=== PATIENT | female | born 1980 | race Caucasian/White ===

== ENCOUNTER 2020-10-28 14:34 | Emergency (ER) | payer OTHER, SELFPAY ==
--- NOTE | 2020-10-28 14:51 | DI.RAD.S_ITS ---
PROCEDURE: XR ANKLE LT MIN 3V INDICATIONS: fall TECHNIQUE: 3 views of the ankle were acquired. COMPARISON: None. FINDINGS: Bones: No fractures or dislocations. Ankle mortise is normally aligned. No suspicious bony lesions. Posterior and plantar calcaneal spurs. Soft tissues: No tibiotalar joint effusion. Achilles tendon appears normal. IMPRESSION: Calcaneal spurs. Otherwise unremarkable left ankle radiographs Approved by: Shemar Connor M.D. on 10/28/2020 at 14:32
--- NOTE | 2020-10-28 14:51 | DI.RAD.S_ITS ---
PROCEDURE: XR FOOT LT MIN 3V INDICATIONS: fall TECHNIQUE: 3 views of the foot were acquired. COMPARISON: None. FINDINGS: Bones: No fractures or dislocations. No suspicious bony lesions. Small calcaneal spur Soft tissues: No tibiotalar joint effusion. Achilles tendon appears normal. IMPRESSION: Small posterior and plantar calcaneal spurs. No fracture or foreign body Approved by: Shemar Connor M.D. on 10/28/2020 at 14:34
[2020-10-28 14:52] VITALS: BP 175/90; PULSE 100; RESP 18; TEMP 36.6; O2SAT 98; BMI 60.2
--- NOTE | 2020-10-28 15:19 | PC.NURSE ---
in addition to L ankle injury, pt complaints of a tingling sensation from head to foot along the L side of her body began apoxx 3 days ago.
[2020-10-28] MEDS: IBUPROFEN 400 MG TABLET 800 MG PO (16:20)
--- NOTE | 2020-10-28 17:15 | PC.NURSE ---
Pt declined DC VS
--- NOTE | 2020-10-30 17:15 | ED_ITS ---
HPI - Extremity Injury (Lower) <Petra Armstrong PA-C - Last Filed: 10/30/20 17:32> General Chief Complaint: Extremity Injury, Lower Stated Complaint: poss broken ankle Time Seen by Provider: 10/28/20 14:51 Source: patient and family Mode of arrival: Family Vehicle Limitations: no limitations History of Present Illness HPI Narrative: 40-year-old female with no significant past medical history presents to the ED status post a left ankle injury just prior to arrival. Patient reports that she rolled her ankle when stepping off a sidewalk, has rolled the same ankle before, was unable to bear weight or walk right after due to the pain. patient denies numbness, tingling, weakness. Related Data Allergies Allergy/AdvReac Type Severity Reaction Status Date / Time No Known Drug Allergies Allergy Verified 10/28/20 14:50 Review of Systems <Petra Armstrong PA-C - Last Filed: 10/30/20 17:32> Constitutional Constitutional: Denies chills, Denies fever(s), Denies frequent falls, Denies lethargy and Denies weakness ENT Ears, Nose, Mouth, and Throat: Denies dizziness Cardiovascular Cardiovascular: Denies chest pain, Denies irregular heart rhythm, Denies lightheadedness, Denies palpitations, Denies dyspnea, Denies dyspnea on exertion and Denies orthopnea Respiratory Respiratory: Denies cough, Denies dyspnea, Denies dyspnea on exertion and Denies wheezing Gastrointestinal Gastrointestinal: Denies abdominal pain, Denies change in bowel habits, Denies diarrhea, Denies nausea and Denies vomiting Musculoskeletal Musculoskeletal: Denies numbness Comments: Left ankle swelling, pain, inability to bear weight Integumentary/Breasts Skin/Breast: Denies pruritus, Denies erythema, Denies rash and Denies wounds Neurologic Neurologic: Denies behavioral changes, Denies confusion, Denies dizziness, Denies frequent falls, Denies numbness and Denies weakness Psychiatric Psychiatric: Denies behavioral changes and Denies confusion Endocrine Endocrine: Denies palpitations Hematologic/Lymphatic Hematologic/Lymphatic: Denies easy bruising Allergic/Immunologic Allergic/Immunologic: Denies wheezing Patient History <Petra Armstrong PA-C - Last Filed: 10/30/20 17:32> Social History Smoking Status: Never smoker Smoking Status: Never smoker alcohol intake frequency: holidays/special occasions only Substance Use Type: marijuana Exam <Petra Armstrong PA-C - Last Filed: 10/30/20 17:32> Initial Vital Signs Initial Vital Signs: Vital Signs Temperature 97.9 F 10/28/20 14:52 Pulse Rate 100 H 10/28/20 14:52 Respiratory Rate 18 10/28/20 14:52 Blood Pressure 175/90 H 10/28/20 14:52 Pulse Oximetry 98 10/28/20 14:52 Const General: cooperative Resp Effort & Inspection: normal respiratory effort, able to speak in complete sentences, no respiratory distress and no use of accessory muscles Auscultation: clear to auscultation bilaterally, no rales, no rhonchi and no wheezes Cardio Rate: regular rate Rhythm: regular rhythm Heart Sounds: no click, no gallops, no murmurs and no rubs Pulses: normal peripheral pulses Back/Spine/Pelvis Back: No CVA tenderness Cervical Spine: cervical ROM normal and No pain with cervical ROM Thoracic/Lumbar Spine: thoracic and lumbar spine normal to inspection Skin General: no rashes or lesions noted, No jaundice and No petechiae Neuro General: patient alert, patient oriented x3, gait normal and no focal motor deficits Speech: speech normal Extrem General: capillary refill normal, no clubbing, cyanosis or edema and no calf tenderness Left lower extremity: normal capillary refill Other: left ankle with moderate swelling, no bruising. Patient unable to bear weight or walk. Patient neurovascularly intact. Cap refill less than 2 seconds. <Deana Bean DO - Last Filed: 11/01/20 07:41> Initial Vital Signs Initial Vital Signs: Vital Signs Temperature 97.9 F 10/28/20 14:52 Pulse Rate 100 H 10/28/20 14:52 Respiratory Rate 18 10/28/20 14:52 Blood Pressure 175/90 H 10/28/20 14:52 Pulse Oximetry 98 10/28/20 14:52 Course <FOX Rodriguez Last Filed: 10/30/20 17:32> Course Course Narrative: X-rays negative for fractures, dislocations. under sprain treated with ibuprofen, boot and non-weightbearing. Follow-up with PCP. Orders Ordered: Discontinued Medications Ibuprofen (Ibuprofen 400 Mg Tablet) 800 mg PO NOW ONE Stop: 10/28/20 16:09 Last Admin: 10/28/20 16:20 Dose: 800 mg Documented by: JOSE MANUEL <Deana Bean DO - Last Filed: 11/01/20 07:41> Orders Ordered: Discontinued Medications Ibuprofen (Ibuprofen 400 Mg Tablet) 800 mg PO NOW ONE Stop: 10/28/20 16:09 Last Admin: 10/28/20 16:20 Dose: 800 mg Documented by: JOSE MANUEL MDM - Extremity Injury (Lower) <Petra Armstrong PA-C - Last Filed: 10/30/20 17:32> Medical Records Attestation: I reviewed the patient's medical records. Imaging Data Extremity x-ray #1: Radiologist's Impression: PROCEDURE:? XR FOOT LT MIN 3V ? INDICATIONS:? fall ? TECHNIQUE:? 3 views of the foot were acquired.? ? COMPARISON:? None. ? FINDINGS:? ? Bones:? No fractures or dislocations.? No suspicious bony lesions.? Small calcaneal spur ? Soft tissues:? No tibiotalar joint effusion.? Achilles tendon appears normal.? ? ? IMPRESSION:? Small posterior and plantar calcaneal spurs.? No fracture or foreign body ? ? ? Approved by: Shemar Connor M.D. on 10/28/2020 at 14:34? Extremity x-ray #2: Radiologist's Impression: PROCEDURE:? XR ANKLE LT MIN 3V ? INDICATIONS:? fall ? TECHNIQUE:? 3 views of the ankle were acquired.? ? COMPARISON:? None. ? FINDINGS:? ? Bones:? No fractures or dislocations.? Ankle mortise is normally aligned.? No suspicious bony lesions.? Posterior and plantar calcaneal spurs. ? Soft tissues:? No tibiotalar joint effusion.? Achilles tendon appears normal.? ? ? IMPRESSION:? Calcaneal spurs.? Otherwise unremarkable left ankle radiographs ? Approved by: Shemar Connor M.D. on 10/28/2020 at 14:32? [facility] Narrative Medical decision making narrative: 40-year-old female with no significant past medical history presents to the ED status post a left ankle injury just prior to arrival. For concern for fractures, dislocations versus ankle sprain. Per the [place] ankle rule, will obtain foot and ankle x-rays. Will treat pain and swelling with ibuprofen. Will reassess. Likely discharge home with boot and non-weightbearing. Discharge Plan Departure Patient Disposition: Home Clinical Impression: Ankle sprain and strain Instructions: Ankle Sprain Activity Restrictions/Additional Instructions: X-rays were negative for fractures or dislocations today, you have the ankle sprain. Can take ibuprofen for pain and swelling. Can rest, ice, use compression, elevation. Use boot for walking. Follow-up with your PCP. Return to the ED if you experience numbness, tingling, weakness, increased pain. Referrals: [facility] [Outside] (PCP f/u) <Deana Bean DO - Last Filed: 11/01/20 07:41> Cosign ED Attending Coleman Attestation: I was immediately available in the department for consultation. Documentation has been reviewed. I agree with assessment and plan.
== END 2020-10-28 17:16 | disposition home or self-care (01) ==
PROVIDERS: Emergency Provider Student in an Organized Health Care Education/Training Program
DX: S93.402A Sprain of unspecified ligament of left ankle, initial encounter (principal); S96.912A Strain of unspecified muscle and tendon at ankle and foot level, left foot, initial encounter; X50.1XXA Overexertion from prolonged static or awkward postures, initial encounter
CPT/HCPCS: 73610; 73630; 99283

== ENCOUNTER 2024-08-15 07:56 | Emergency (ER) | payer OTHER, SELFPAY ==
[2024-08-15] VITALS (11 sets, daily range): BP systolic 118–154; BP diastolic 61–88; PULSE 59–69; RESP 12–23; TEMP 36.4; O2SAT 96–100; BMI 37.9
--- NOTE | 2024-08-15 08:01 | EKG_ITS ---
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
--- NOTE | 2024-08-15 08:01 | ED_ITS ---
HPI - Chest Pain General Chief Complaint: Chest Pain Stated Complaint: Chest Px/SOB Time Seen by Provider: 08/15/24 08:01 History of Present Illness HPI narrative: Patient brought in by ambulance from her vehicle this morning. Chest pain has resolved. Patient had 30 minute episode of substernal left chest tightness pressure that radiated to her upper back. No syncope. Was sweaty. Patient has history of gastric sleeve however he has had discomfort in the past and it did not feel the same. Symptoms have resolved. Patient given aspirin prior to arrival by EMS. EKG sinus rhythm by EMS. Patient denies any cardiac history. No history hypertension hyperlipidemia. Does not smoke. Father did have heart problems starting at age 40. Patient has never had cardiac workup. Patient denies any history of blood clots in legs or lungs. Patient just returned from [place] this past weekend, she flew there and back. She went there to do hiking. She denies denies denies any exertional chest pain shortness of breath diaphoresis nausea with her hike. She did have the usual she states adjustment to higher elevation. Denies any recent in the past months exertional chest pain or chest pain at rest or nausea or sweating. Patient did have a protein drink prior to episode. However the strengths are not new. Related Data Allergies Allergy/AdvReac Type Severity Reaction Status Date / Time No Known Drug Allergies Allergy Verified 10/28/20 14:50 Review of Systems Review of Systems Narrative: GENERAL: Negative chills, fatigue, malaise, fever, positive sweats. HEENT: Negative sinus pain, ear pain, sore throat RESPIRATORY: Negative dyspnea, cough CARDIOVASCULAR: Positive chest pain, negative syncope palpitations GASTROINTESTINAL: Negative vomiting, nausea, abdominal pain : Negative dysuria, frequency, hematuria MUSCULOSKELETAL: Negative muscle or bony pain SKIN: Negative rash, skin lesions NEUROLOGIC: Negative weakness, numbness ROS Unobtainable: All systems reviewed & are unremarkable except as noted in HPI and below Patient History Social History Smoking Status: Never smoker alcohol intake frequency: holidays/special occasions only Exam Narrative Exam Narrative: GENERAL: in no distress, not toxic not dyspneic HEAD: Normocephalic. EYES: Pupils equal round ENT: Mucous membranes moist. NECK: Trachea midline. CARDIOVASCULAR: Regular rate and rhythm strong bilateral carotid and radial pulses. No murmur, patient denies any chest pain at this time RESPIRATORY: Clear to auscultation. Breath sounds equal bilaterally. No wheezes, rales, or rhonchi. Chest wall is nontender. GASTROINTESTINAL: Abdomen soft, non-tender EXTREMITIES: No gross deformities. BACK: No flank tenderness. NEURO: AOx4. Clear speech SKIN: Warm and dry PSYCH: Not anxious, is cooperative Initial Vital Signs Initial Vital Signs: Vital Signs Respiratory Rate 16 08/15/24 07:56 Scores HEART Score Heart Score history: Slightly Suspicious Heart Score EKG: Normal Heart Score Age: 45-64 years old Heart Score risk factors: 1-2 risk factors Heart Score troponin: < or = to normal limit Heart Score Total: 2 Course Orders Ordered: Discontinued Medications Sodium Chloride (Normal Saline 0.9%) 250 mls @ 1,000 mls/hr IV NOW ONE Stop: 08/15/24 08:18 Last Infusion: 08/15/24 09:18 Dose: Infused Documented By: Admin: 08/15/24 08:09 Dose: 1,000 mls/hr Documented By: SHERRI Vital Signs Vital signs: Vital Signs - 8 hr 08/15/24 07:56 08/15/24 08:04 08/15/24 08:04 Temperature Pulse Rate 63 Respiratory Rate 16 23 Blood Pressure 137/84 Pulse Oximetry 100 Oxygen Delivery Method 08/15/24 08:05 08/15/24 08:21 08/15/24 08:21 Temperature 97.5 F L Pulse Rate 62 63 Respiratory Rate 16 15 Blood Pressure 137/84 124/61 Pulse Oximetry 100 99 Oxygen Delivery Method Room Air 08/15/24 08:30 08/15/24 08:30 08/15/24 09:00 Temperature Pulse Rate 60 Respiratory Rate 12 Blood Pressure 118/66 154/88 H Pulse Oximetry 100 Oxygen Delivery Method 08/15/24 09:00 08/15/24 09:30 08/15/24 09:30 Temperature Pulse Rate 59 L 64 Respiratory Rate 12 19 Blood Pressure 143/82 H Pulse Oximetry 99 97 Oxygen Delivery Method 08/15/24 10:00 08/15/24 10:00 08/15/24 10:30 Temperature Pulse Rate 68 Respiratory Rate 19 Blood Pressure 139/71 137/76 Pulse Oximetry 97 Oxygen Delivery Method 08/15/24 10:30 08/15/24 11:00 08/15/24 11:00 Temperature Pulse Rate 65 64 Respiratory Rate 15 19 Blood Pressure 138/81 Pulse Oximetry 96 97 Oxygen Delivery Method MDM - Chest Pain Lab Data 08/15/24 07:50 08/15/24 07:50 Labs: Lab Results 08/15/24 08/15/24 08/15/24 Range/Units 07:50 08:59 10:39 WBC 4.1 L (4.5-11.0) X10^3/uL RBC 4.64 (4.0-5.2) X10^6/uL Hgb 14.5 (12.0-16.0) g/dL Hct 43.7 (36-46) % MCV 94.3 (80-100) fL MCH 31.2 (26-34) PG MCHC 33.1 (30-36) % RDW 14.1 (11.6-14.8) % Plt Count 242 (150-400) X10^3/uL Neut % (Auto) 56.0 (50-75) % Lymph % (Auto) 36.7 (25-40) % [place] % (Auto) 5.5 (3-14) % Eos % (Auto) 1.1 L (2-4) % Baso % (Auto) 0.7 (0-2) % Neut # (Auto) 2300 (8056-6918) /uL Lymph # (Auto) 1500 (2427-7925) /uL [place] # (Auto) 200 (0-900) /uL Eos # (Auto) 0 (0-450) /uL Baso # (Auto) 0 (0-100) /uL PT 11.5 (9.4-12.5) SECONDS INR 1.0 (0.9-1.3) APTT 34 (25.1-36.5) SECONDS Sodium 139 (137-145) mmol/L Potassium 3.7 (3.4-5.1) mmol/L Chloride 107 (98-107) mmol/L Carbon Dioxide 25 (22-32) mmol/L BUN 14 (7-17) mg/dL Creatinine 0.74 (0.52-1.04) mg/dL Estimated GFR > 60 (>60) mL/min BUN/Creatinine Ratio 18.9 (6-22) Glucose 83 (70-99) mg/dL Calcium 9.2 (8.4-10.2) mg/dL Total Bilirubin 0.9 (0.2-1.3) mg/dL AST 126 H (14-36) IU/L ALT 53 H (<35) IU/L Alkaline Phosphatase 94 (38-126) U/L Total Creatine Kinase 92 79 (30-135) U/L Troponin I < 0.012 < 0.012 (0.01-0.034) ng/mL Total Protein 7.4 (6.3-8.2) g/dL Albumin 4.4 (3.5-5.0) g/dL Globulin 3.0 (1.7-4.1) g/dL Albumin/Globulin Ratio 1.5 (1.0-2.8) Imaging Data CT scan - chest: Radiologist's Impression: [address] [address] [address] Scan Report Signed Patient: Key Huertas MR#: [id number] : 1980 Acct:[id number] Age/Sex: 44 / F Date of Service: 08/15/24 Loc: ED Accession Number: [id number] Procedure: CT angio chest PE protocol Ordering Provider: Moises Monsivais MD PROCEDURE: CT ANGIO CHEST PE PROTOCOL INDICATIONS: Chest pain TECHNIQUE: After the administration of intravenous contrast, 2 mm thick sections acquired from the pulmonary apices to the posterior costophrenic angles. 3-dimensional maximum intensity projection (MIP) coronal and sagittal reformats were then acquired through the thorax. For radiation dose reduction, the following was used: automated exposure control, adjustment of mA and/or kV according to patient size. COMPARISON: None. FINDINGS: Image quality: Diagnostic Lungs and pleura: No airspace consolidation or pleural effusion Mediastinum, heart, and esophagus: No acute pulmonary embolism. Heart size is at the upper limit of normal. No enlarged lymph nodes by size criteria. Unremarkable esophagus Chest wall and thyroid: Unremarkable Upper abdomen: Partially seen gastric suture lines. No gross abnormality on these arterial phase images Bones: No aggressive appearing osseous abnormality. IMPRESSION: No acute pulmonary embolism. No airspace consolidation or pleural effusion. Dictated by: Flo Wyatt M.D. on 08/15/2024 at 8:45 Approved by: Flo Wyatt M.D. on 08/15/2024 at 8:48 [facility] Narrative Medical decision making narrative: Patient brought in by ambulance from her vehicle this morning. Chest pain has resolved. Patient had 30 minute episode of substernal left chest tightness pressure that radiated to her upper back. No syncope. Was sweaty. Patient has history of gastric sleeve however she has had discomfort in the past and it did not feel the same. Symptoms have resolved. Patient given aspirin prior to arrival by EMS. EKG sinus rhythm by EMS. Patient denies any cardiac history. No history hypertension hyperlipidemia. Does not smoke. Father did have heart problems starting at age 40. Patient has never had cardiac workup. Patient denies any history of blood clots in legs or lungs. Patient just returned from [place] this past weekend, she flew there and back. She went there to do hiking. She denies denies denies any exertional chest pain shortness of breath diaphoresis nausea with her hike. She did have the usual she states adjustment to higher elevation. Denies any recent in the past months exertional chest pain or chest pain at rest or nausea or sweating. Patient did have a protein drink prior to episode. However the strengths are not new. After history and exam, CBC CMP EKG troponin x2 CT chest, normal saline. Patient has no complaints at this time. No chest pain. [facility] Medical records reviewed: No recent visit for this complaint Differential considered: Includes but not limited to STEMI non-STEMI pulmonary embolism acid reflux pancreatitis gastritis Lab Test results independently reviewed as above. Pertinent findings: Troponin less than 0.012 x 2 Independently reviewed EKG sinus bradycardia rate [address] elevation or depression. Otherwise normal EKG Imaging studies independently reviewed: CT chest no PE or acute finding Consultations: 11:59 a.m.. Spoke with Cardiology, Dr. Burnham, appropriate for discharge home. Outpatient Holter monitoring/Zio patch as well as outpatient stress test through primary care. Re-evaluations: 12:10 p.m.. Updated patient results. Remains symptom free. Results are reassuring. She has a family doctor to follow up for outpatient stress test and Holter monitoring. Return precautions reviewed. She desires discharge home Discussion: Appropriate for discharge home. Patient has low heart score of 2. Patient otherwise has low heart risk factors. No nitroglycerin was given by EMS or here. Chest discomfort resolved spontaneously prior to arrival to the hospital. Appropriate for outpatient follow up and possible outpatient stress test echocardiogram. Two sets of troponin were negative. Return precautions reviewed. She desires discharge home. Chest discomfort nonspecific at this time. It could be gastritis acid reflux. Patient does have history of gastric sleeve. However, no CT abdomen pelvis indicated this time. Likely not obstruction. Gastric discomfort can cause sweating/diaphoresis Diagnosis: Chest pain Discharge Plan Departure Patient Disposition: Home Clinical Impression: Chest pain Instructions: DI for Chest Pain Activity Restrictions/Additional Instructions: Your exam and laboratory studies and imaging studies are reassuring. Cardiology service was contacted and reviewed your results. At this time please do follow up your family doctor for outpatient Holter monitor/Zio patch for your heart. Also schedule outpatient stress test for your heart. Return if worse if any questions or concerns. Stand Alone Forms: Patient Portal/API, Work Release Note
--- NOTE | 2024-08-15 08:04 | DI.CT.S_ITS ---
PROCEDURE: CT ANGIO CHEST PE PROTOCOL INDICATIONS: Chest pain TECHNIQUE: After the administration of intravenous contrast, 2 mm thick sections acquired from the pulmonary apices to the posterior costophrenic angles. 3-dimensional maximum intensity projection (MIP) coronal and sagittal reformats were then acquired through the thorax. For radiation dose reduction, the following was used: automated exposure control, adjustment of mA and/or kV according to patient size. COMPARISON: None. FINDINGS: Image quality: Diagnostic Lungs and pleura: No airspace consolidation or pleural effusion Mediastinum, heart, and esophagus: No acute pulmonary embolism. Heart size is at the upper limit of normal. No enlarged lymph nodes by size criteria. Unremarkable esophagus Chest wall and thyroid: Unremarkable Upper abdomen: Partially seen gastric suture lines. No gross abnormality on these arterial phase images Bones: No aggressive appearing osseous abnormality. IMPRESSION: No acute pulmonary embolism. No airspace consolidation or pleural effusion. Dictated by: Flo Wyatt M.D. on 08/15/2024 at 8:45 Approved by: Flo Wyatt M.D. on 08/15/2024 at 8:48
[2024-08-15] MEDS: SODIUM CHLORIDE 0.9% 250 ML 1000 ML IV (08:09)
[2024-08-15 08:20] LABS: Alanine Aminotransferase 53 IU/L (<35); Albumin 4.4 g/dL (3.5-5.0); Albumin Globulin Ratio 1.5 (1.0-2.8); Alkaline Phosphatase 94 U/L (38-126); Aspartate Aminotransferase 126 IU/L (14-36); BUN Creatinine Ratio 18.9 (6-22); Bilirubin Total 0.9 mg/dL (0.2-1.3); Blood Urea Nitrogen 14 mg/dL (7-17); Calcium 9.2 mg/dL (8.4-10.2); Carbon Dioxide 25 mmol/L (22-32); Chloride 107 mmol/L (98-107); Estimated Glomerular Filt Rate > 60 mL/min (>60); Glucose 83 mg/dL (70-99); HEMOLYSIS 22 (0-50); Potassium 3.7 mmol/L (3.4-5.1); Sodium 139 mmol/L (137-145); Total Protein 7.4 g/dL (6.3-8.2)
[2024-08-15 08:21] LABS: Add Manual Diff / Slide Review NO; Basophils Absolute Auto 0 /uL (0-100); Basophils Percent Auto 0.7 % (0-2); Eosinophils Absolute Auto 0 /uL (0-450); Eosinophils Percent Auto 1.1 % (2-4); Hematocrit 43.7 % (36-46); Hemoglobin 14.5 g/dL (12.0-16.0); Lymphocytes Absolute Auto 1500 /uL (1100-4500); Lymphocytes Percent Auto 36.7 % (25-40); Mean Corpuscular HGB Conc 33.1 % (30-36); Mean Corpuscular Hemoglobin 31.2 PG (26-34); Mean Corpuscular Volume 94.3 fL (80-100); Monocytes Absolute Auto 200 /uL (0-900); Monocytes Percent Auto 5.5 % (3-14); Neutrophils Absolute Auto 2300 /uL (1500-7000); Platelet Count 242 X10^3/uL (150-400); Red Blood Cell Count 4.64 X10^6/uL (4.0-5.2); Red Cell Distribution Width 14.1 % (11.6-14.8); White Blood Cell Count 4.1 X10^3/uL (4.5-11.0)
[2024-08-15 08:36] LABS: PTT Partial Thromboplastin Tim 34 SECONDS (25.1-36.5); Prothrombin Time 11.5 SECONDS (9.4-12.5)
[2024-08-15 10:48] LABS: Creatine Kinase 92 U/L (30-135)
[2024-08-15 10:58] LABS: Troponin I < 0.012 ng/mL (0.01-0.034)
[2024-08-15 11:14] LABS: Creatine Kinase 79 U/L (30-135)
[2024-08-15 11:24] LABS: Troponin I < 0.012 ng/mL (0.01-0.034)
== END 2024-08-15 12:14 | disposition home or self-care (01) ==
PROVIDERS: Emergency Provider Emergency Medicine
DX: R07.9 Chest pain, unspecified (principal); M54.6 Pain in thoracic spine; Z98.84 Bariatric surgery status
CPT/HCPCS: 71275; 80053; 82550; 84484; 85025; 85610; 85730; 93005; 93010; 96360; 99284; Q9967